=== PATIENT | male | born 1970 | race Caucasian/White ===

== ENCOUNTER 2021-09-18 20:50 | Emergency (ER) | payer OTHER ==
[2021-09-18] MEDS ORDERED: Ketorolac Tromethamine 30 MG/ML VIAL ONE (21:24)
[2021-09-18] MEDS ORDERED: Sodium Chloride 0.9% 1,000 ML ONE (21:24)
[2021-09-18] MEDS ORDERED: Ondansetron PF 4 MG/2 ML Vial ONE (21:24)
[2021-09-18 21:26] LABS: #Basophils 0.1 thou/uL (0.0-0.2); #Eosinphils 0.3 thou/uL (0.0-0.7); #Lymphocytes 1.2 thou/uL (1.20-3.40); #Monocytes 0.6 thou/uL (0.11-0.59); #Neutrophils 3.3 thou/uL (1.40-6.50); %Basophils 1.6 % (0.0-1.0); %Eosinophils 6.2 % (0.0-10.0); %Lymphocytes 22.4 % (21.0-51.0); %Monocytes 11.3 % (0.0-10.0); %Neutrophils 58.5 % (42.0-75.0); Hemoglobin 17.6 g/dL (14.0-18.0); Mean Corpuscular HGB CONC 35.2 g/dL (32.0-36.0); Mean Corpuscular Hemoglobin 33.1 pg (27.0-31.0); Mean Platelet Volume 6.1 fL (7.4-10.4); Platelet Count 176 thou/uL (130-400); RBC Distribution Width 11.8 % (11.5-14.5); White Blood Cell (WBC) Count 5.6 thou/uL (4.8-10.8)
[2021-09-18 21:27] LABS: Bilirubin Negative (Negative); Blood, Urine Negative (Negative); Clarity Clear (Clear); Glucose, Urine (Dipstick) Negative (Negative); Ketone, Urine Negative (Negative); Leukocyte Negative (Negative); Nitrite Negative (Negative); Protein, Urine (Dipstick) Negative (Neg-Trace); Urobilinogen 0.2 mg/dL (Less than 2)
[2021-09-18 21:46] LABS: ALT (SGPT) 44 U/L (8-55); AST (SGOT) 33 U/L (5-34); Alkaline Phosphatase 56 U/L (40-110); Anion Gap 15 mmol/L (10-20); BUN (Urea Nitrogen) 10 mg/dL (8.4-25.7); Bilirubin, Total 1.4 mg/dL (0.2-1.2); Calc. Creatinine Clearance 0 mL/min (70-130); Calcium 9.3 mg/dL (7.8-10.44); Carbon Dioxide 26 mmol/L (22-29); Chloride 98 mmol/L (98-107); Globulin 2.9 g/dL (2.4-3.5); Glucose 101 mg/dL (70-105); Potassium 3.9 mmol/L (3.5-5.1); Protein, Total 6.9 g/dL (6.0-8.3); Sodium 135 mmol/L (136-145)
[2021-09-18 22:12] LABS: Lipase 31 U/L (8-78); Magnesium 1.8 mg/dL (1.6-2.6)
== END 2021-09-18 22:45 | disposition home or self-care (01) ==
LOC: MADERS 20:50
DX: R10.12 Left upper quadrant pain (principal); I10 Essential (primary) hypertension; Z79.899 Other long term (current) drug therapy
CPT/HCPCS: 74176; 80053; 81003; 83690; 83735; 85025; 87086; 96374; 96375; J1885; J2405; J7050